=== PATIENT | male | born 1960 | race Caucasian/White ===

== ENCOUNTER 2018-04-20 20:04 | Emergency (ER) | payer BC, OTHER ==
[~2018-04-20] VITALS: Ht 188 cm; Wt 83.9 kg
[2018-04-20 20:04] VITALS: BP_SYST 154
[2018-04-20] MEDS ORDERED: ASPIRIN 81 MG TAB.CHEW PO ONE (20:30)
[2018-04-20 20:41] LABS: BASOPHILS % (AUTO) 0.7 % (0.0-2.0); EOSINOPHILS # (AUTO) 0.1 K/uL (0.0-0.4); EOSINOPHILS % (AUTO) 2.1 % (0.0-4.0); HEMOGLOBIN 14.4 g/dL (14.0-18.0); LYMPHOCYTES # (AUTO) 1.2 K/uL (1.0-5.5); MEAN CORPUSCULAR HEMOGLOBIN 30 pg (27-31); MEAN CORPUSCULAR HGB CONC 33 % (32-36); MEAN CORPUSCULAR VOLUME 91 fL (79.0-98.0); MONOCYTES # (AUTO) 0.8 K/uL (0.0-1.0); MONOCYTES % (AUTO) 15.9 % (1.7-9.3); NEUTROPHILS % (AUTO) 58.3 % (40.0-70.0); PLATELET COUNT (AUTO) 222 K/uL (130-430); RED BLOOD CELL COUNT(AUTO) 4.72 MIL/uL (4.2-6.2); RED CELL DISTRIBUTION WIDTH 12.6 % (9.0-15.0); WHITE BLOOD COUNT (AUTO) 5.1 K/uL (4.8-10.8)
[2018-04-20 20:49] LABS: CALCIUM 8.5 mg/dL (8.4-11.0); CREATININE 0.87 mg/dL (0.55-1.30); POTASSIUM 3.7 mmol/L (3.5-5.1)
[2018-04-20 20:54] LABS: PROTHROMBIN TIME 10.1 SECS (9.5-12.5)
[2018-04-20 20:56] LABS: ALBUMIN 3.8 g/dL (3.4-4.8); TOTAL BILIRUBIN 0.2 mg/dL (0.0-1.0)
[2018-04-20 23:14] VITALS: BP_SYST 131
== END 2018-04-20 23:14 | disposition home or self-care (01) ==
LOC: SED 20:04
DX: R07.89 Other chest pain (principal); R79.89 Other specified abnormal findings of blood chemistry; R03.0 Elevated blood-pressure reading, without diagnosis of hypertension; Z88.0 Allergy status to penicillin; Z86.79 Personal history of other diseases of the circulatory system
CPT/HCPCS: 36415; 71045; 80053; 82550-TC; 83880; 84484; 85025; 85610-TC; 85730-TC; 93005; 99285

== ENCOUNTER 2020-01-22 22:10 | Emergency (ER) | payer OTHER ==
[~2020-01-22] VITALS: Ht 188 cm; Wt 81.6 kg
[2020-01-22 22:20] VITALS: BP_SYST 149
--- NOTE | 2020-01-22 22:20 | NUR ---
PT AAO AND AMBULATORY C/O APPROXIMATELY FOUR EPISODES OF AFIB. PT HAD AN ABLASION LAST YEAR AND OCCASIONALLY EXPERIENCES EPISODES OF AFIB THAT COME AND GO. PT CURRENTLY DENIES PAIN OR SOB.
--- NOTE | 2020-01-22 22:22 | NUR ---
Patient to ER bed 1 to gown for evaluation. Side rails up. Report given to KIT.
--- NOTE | 2020-01-22 22:44 | NUR ---
EKG/CHRISTINA COMPLETED, PT CALM, ALERT, RESP UNLABORED, VSS
--- NOTE | 2020-01-22 22:58 | NUR ---
C/O"FEELING LIKE I WAS IN A-FIB". UPON ARRIVAL, SR @62 NORMOTENSIVE. NO DISTRESS
--- NOTE | 2020-01-22 23:02 | NUR ---
DR MARTINEZ IN TO ASSESS
[2020-01-22 23:24] LABS: ANION GAP 11 (5-15); CALCIUM 8.8 mg/dL (8.4-11.0); CHLORIDE 103 mmol/L (98-107); CREATININE 0.86 mg/dL (0.55-1.30); GLUCOSE 120 mg/dL (70-99); POTASSIUM 3.9 mmol/L (3.5-5.1); SODIUM SERUM 140 mmol/L (136-145); UREA NITROGEN, BLOOD 15 mg/dL (8-21)
--- NOTE | 2020-01-22 23:25 | NUR ---
ASSUMED CARE OF PT. PT RESTING QUIETLY IN NO DISTRESS AWAITING DISPOSITION.
[2020-01-22 23:26] LABS: BASOPHILS % (AUTO) 0.4 % (0.0-2.0); EOSINOPHILS # (AUTO) 0.2 K/uL (0.0-0.4); EOSINOPHILS % (AUTO) 3.3 % (0.0-4.0); HEMATOCRIT 43.2 % (36-54); HEMOGLOBIN 13.9 g/dL (14.0-18.0); LYMPHOCYTES # (AUTO) 2.1 K/uL (1.0-5.5); LYMPHOCYTES % (AUTO) 29.7 % (20.5-51.5); MEAN CORPUSCULAR HEMOGLOBIN 29 pg (27-31); MEAN CORPUSCULAR HGB CONC 32 % (32-36); MEAN CORPUSCULAR VOLUME 91 fL (79.0-98.0); MONOCYTES # (AUTO) 0.7 K/uL (0.0-1.0); MONOCYTES % (AUTO) 9.3 % (1.7-9.3); NEUTROPHILS # (AUTO) 4.1 K/uL (1.8-7.7); NEUTROPHILS % (AUTO) 57.3 % (40.0-70.0); PLATELET COUNT (AUTO) 229 K/uL (130-430); RED BLOOD CELL COUNT(AUTO) 4.74 MIL/uL (4.2-6.2); RED CELL DISTRIBUTION WIDTH 13.4 % (9.0-15.0); WHITE BLOOD COUNT (AUTO) 7.1 K/uL (4.8-10.8)
[2020-01-22 23:33] LABS: GFR AFRICAN AMERICAN 118 mL/min (>90)
[2020-01-22 23:57] VITALS: BP_SYST 112
--- NOTE | 2020-01-23 00:02 | NUR ---
Patient given written and verbal discharge instructions and verbalizes understanding. DR. JUAN ROGERS MD discussed with patient the results and treatment provided. Patient in stable condition. ID arm band removed. IV catheter removed intact and dressing applied, no active bleeding. Patient educated on pain management and to follow up with PMD. Pain Scale 0/10. Opportunity for questions provided and answered.
== END 2020-01-23 00:02 | disposition home or self-care (01) ==
LOC: SED 22:10
DX: R00.2 Palpitations (principal); I48.91 Unspecified atrial fibrillation
CPT/HCPCS: 36415; 71045; 80048; 84484; 85025; 99284